=== PATIENT | female | born 1970 | race Caucasian/White ===

== ENCOUNTER 2024-08-20 14:20 | Outpatient (CLI) | payer OTHER, SELFPAY ==
--- NOTE | 2024-08-20 14:20 | MM_ITS ---
WS: [id number] BILATERAL SCREENING DIGITAL TOMOSYNTHESIS MAMMOGRAM WITH CAD HISTORY: SCREENING COMPARISON: 07/16/2022, 07/13/2021, ultrasound 07/16/2022, RIGHT and LEFT breast. Bilateral CC and MLO views with tomosynthesis and synthetic mammography submitted. Computer aided det ection analyzed. Breast composition: The breasts are extremely dense, which lowers the sensitivity of mammography. No suspicious masses, microcalcifications or architectural distortion. There are numerous scattered mass es within each breast. Some of these are partially obscured and majority are of increased density. Ma sses have been previously described and noted to be cysts on ultrasound evaluation. Majority of these masses have stayed the same or decreased in size. There are very dense patches of asymmetric breast tissue within each upper outer quadrant. MM/MM scr BI tomosynthesis [id number] IMPRESSION: BI-RADS: 2 - Benign FOLLOW UP: 1 Year Follow-up
== END 2024-08-20 14:21 | disposition home or self-care (01) ==
LOC: MOBLMAM 14:23
PROVIDERS: PCP Nurse Practitioner Family; Visit Provider Nurse Practitioner Family
DX: Z12.31 Encounter for screening mammogram for malignant neoplasm of breast (principal); R92.333 Mammographic heterogeneous density, bilateral breasts; N64.89 Other specified disorders of breast
CPT/HCPCS: 77063; 77067